=== PATIENT | female | born 1950 | race Caucasian/White ===

== ENCOUNTER → 2017-01-16 | Outpatient (CLI) | payer MEDICARE, OTHER ==
[~2017-01-16] MED LIST: AMIO200T44 PO; AMLO5TAB66 PO; BENA40TA67 PO; CARV12 PO; DOCU250C91 PO; FURO40 PO; METF500T4 PO; METH10TA4 PO; OMEG1CAP11 PO; PANT40TA25 PO; POTA8TAB4 PO; RIVA20TA PO; SITA100 PO
== END | disposition home or self-care (01) ==
LOC: RADPV 10:50
PROVIDERS: ATTEND Orthopaedic Surgery
DX: M17.12 Unilateral primary osteoarthritis, left knee (principal); M16.12 Unilateral primary osteoarthritis, left hip; M25.852 Other specified joint disorders, left hip; M46.07 Spinal enthesopathy, lumbosacral region
CPT/HCPCS: 72170

== ENCOUNTER → 2017-05-15 | Outpatient (CLI) | payer MEDICARE, OTHER | END | disposition home or self-care (01) | LOC: RADPV 08:22 | PROVIDERS: ATTEND Internal Medicine Cardiovascular Disease | DX: I70.213 Atherosclerosis of native arteries of extremities with intermittent claudication, bilateral legs (principal) | CPT/HCPCS: 93880; 93925 ==

== ENCOUNTER → 2017-06-14 | Outpatient (CLI) | payer MEDICARE, OTHER | END | disposition home or self-care (01) | LOC: RADPV 11:13 | PROVIDERS: ATTEND Orthopaedic Surgery | DX: I82.4Z1 Acute embolism and thrombosis of unspecified deep veins of right distal lower extremity (principal) | CPT/HCPCS: 93971 ==

== ENCOUNTER 2018-12-02 01:09 | Emergency (ER) | payer MEDICARE, OTHER ==
[~2018-12-02] VITALS: Ht 167.6 cm; Wt 86.4 kg
[~2018-12-02 01:09] MED LIST changes: +METF-444 PO; -METF500T4 PO
[2018-12-02] MEDS ORDERED: GLUC100019 PO (01:21)
[2018-12-02] MEDS ORDERED: CHL25 PO (01:21)
[2018-12-02] MEDS ORDERED: ASPI-556 PO (01:21)
[2018-12-02] MEDS ORDERED: CARV25 PO (01:21)
[2018-12-02] MEDS ORDERED: CLOP75TA3 PO (01:21)
[2018-12-02 01:29] LABS: GLUCOSE,POINT OF CARE 256 MG/DL (70-110)
[2018-12-02] MEDS ORDERED: ACETAMINOPHEN 325 MG TABLET PO ONE (03:30)
[2018-12-02 03:36] VITALS: BP 123/55
== END 2018-12-02 04:00 | disposition home or self-care (01) ==
LOC: EMS 01:09
DX: S83.91XA Sprain of unspecified site of right knee, initial encounter (principal); I11.0 Hypertensive heart disease with heart failure; I50.9 Heart failure, unspecified; K21.9 Gastro-esophageal reflux disease without esophagitis; I48.91 Unspecified atrial fibrillation; Z90.710 Acquired absence of both cervix and uterus; Z90.49 Acquired absence of other specified parts of digestive tract; Z79.82 Long term (current) use of aspirin; Z79.899 Other long term (current) drug therapy; Z79.84 Long term (current) use of oral hypoglycemic drugs; X58.XXXA Exposure to other specified factors, initial encounter; Y93.01 Activity, walking, marching and hiking; Y92.89 Other specified places as the place of occurrence of the external cause; Y99.8 Other external cause status

== ENCOUNTER → 2019-01-23 | Outpatient (CLI) | payer MEDICARE, OTHER ==
[~2019-01-23] MED LIST changes: +ASPI-556 PO; -CARV12 PO; +CARV25 PO; +CHL25 PO; +CLOP75TA3 PO; +GLUC100019 PO; -PANT40TA25 PO; -RIVA20TA PO; -SITA100 PO
== END | disposition home or self-care (01) ==
LOC: RADPV 08:28
PROVIDERS: ATTEND Internal Medicine Nephrology
DX: I65.23 Occlusion and stenosis of bilateral carotid arteries (principal)
CPT/HCPCS: 93880

== ENCOUNTER 2021-08-03 12:20 | Inpatient (IN) | payer MEDICARE, OTHER ==
[~2021-08-03] VITALS: Ht 170.2 cm; Wt 103.7 kg
[~2021-08-03 12:20] MED LIST changes: -AMIO200T44 PO; +AMIO200T68 PO; -CLOP75TA3 PO; +CLOP75TA60 PO; +DOCU-350 PO; -DOCU250C91 PO; +METH-624 PO; -METH10TA4 PO; -POTA8TAB4 PO; +SLOWK8 PO
[2021-08-03] MEDS ORDERED: SODIUM CHLORIDE 0.9% 1,000 ML IV ONE (13:00)
[2021-08-03] MEDS ORDERED: ACETAMINOPHEN 500 MG TABLET PO ONE (13:00)
[2021-08-03] MEDS ORDERED: 0.9% SODIUM CHLORIDE 10 ML SYRINGE IVP PRN ×2 (13:00→16:00)
[2021-08-03] MEDS ORDERED: KETOROLAC TROMETHAMINE 30 MG/ML VIAL IVP ONE (13:00)
[2021-08-03 13:10] LABS: BASOPHILS % (AUTO) 0.1 % (0.0-2.0); EOSINOPHILS % (AUTO) 0 % (1.0-6.0); HEMATOCRIT 43.9 % (36-46); HEMOGLOBIN 14.8 g/dL (12.0-16.0); LYMPHOCYTES # (AUTO) 0.3 K/uL (1.0-4.8); LYMPHOCYTES % (AUTO) 3.1 % (22.0-44.0); MEAN CORPUSCULAR HGB CONC 33.6 G/dL (31.0-37.0); MEAN CORPUSCULAR VOLUME 92 fL (80-100); MONOCYTES # (AUTO) 0.9 K/uL (0.1-1.0); MONOCYTES % (AUTO) 9.6 % (2.0-9.0); NEUTROPHILS # (AUTO) 8.6 K/uL (1.8-7.7); PLATELET COUNT (AUTO) 153 K/uL (150-450); RED BLOOD CELL COUNT(AUTO) 4.76 MIL/uL (4.00-5.20); RED CELL DISTRIBUTION WIDTH 15.2 % (11.5-14.5)
[2021-08-03 13:11] LABS: NEUTROPHILS % (AUTO) 87.2 % (40.0-70.0)
[2021-08-03] MEDS ORDERED: IOHEXOL 350 MG/ML 150 ML VIAL ONE (13:11)
[2021-08-03] MEDS ORDERED: SODIUM CHLORIDE 0.9% 100 ML ONE (13:11)
[2021-08-03 13:25] LABS: ANION GAP 19 mmol/L (8-16); CALCIUM, TOTAL 9.8 mg/dL (8.8-10.5); CARBON DIOXIDE 19 mmol/L (22-29); CHLORIDE 92 mmol/L (98-107); CREATININE 1.61 mg/dL (0.60-1.30); GLOMERULAR FILTR. RATE CALC 32 mL/min (>60); GLUCOSE,RANDOM 385 mg/dL (70-110); POTASSIUM 3.9 mmol/L (3.5-5.1); SODIUM SERUM 130 mmol/L (136-145); UREA NITROGEN, BLOOD 50 mg/dL (7-18)
[2021-08-03 13:27] LABS: APPEARANCE,URINE SL CLOUDY (CLEAR); BILIRUBIN,URINE NEGATIVE (NEGATIVE); GLUCOSE, URINE (UA) >=1000 mg/dL (NEGATIVE); KETONES,URINE 15 mg/dL (NEGATIVE); LEUKOCYTE ESTERASE ,URINE SMALL (NEGATIVE); NITRATE,URINE NEGATIVE (NEGATIVE); OCCULT BLOOD,URINE LARGE (NEGATIVE); PROTEIN,URINE POS 1+ (NEGATIVE); UROBILINOGEN,URINE 0.2 mg/dL (<=1.0)
[2021-08-03 13:28] LABS: INR 1.4 (0.9-1.1); PROTHROMBIN TIME 14.1 SEC (9.4-11.6)
[2021-08-03 13:35] LABS: LACTIC ACID 1.7 mmol/L (0.4-2.0)
[2021-08-03 13:39] LABS: BACTERIA,URINE Moderate /HPF (None Seen); TRANSITIONAL EPI CELLS,URINE Few /LPF (None Seen); YEAST,URINE Few /HPF (None Seen)
[2021-08-03 13:44] LABS: B-TYPE NATRIURETIC PEPTIDE 164 pg/mL (0-100)
[2021-08-03] MEDS ORDERED: INSULIN REGULAR, HUMAN 100 UNITS/ML IVP ONE (13:45)
[2021-08-03] MEDS ORDERED: CefTRIAXone 1 GM/DEXTROSE 50 ML IV ONE (13:45)
[2021-08-03] MEDS ORDERED: POTASSIUM CHLORIDE 20 MEQ ER TABLET PO ONE (13:45)
[2021-08-03 13:48] LABS: COVID AG,FIA SOURCE NASAL SWAB
[2021-08-03 13:50] LABS: ALANINE AMINOTRANSFERASE 24 U/L (12-78); ALBUMIN 2.7 g/dL (3.4-5.0); ALKALINE PHOSPHATASE 71 U/L (46-116); ASPARTATE AMINOTRANSFERASE 32 U/L (15-37); BILIRUBIN,TOTAL 0.8 mg/dL (0.1-1.0); CREATINE KINASE, TOTAL ONLY 361 U/L (26-192); TOTAL PROTEIN, SERUM 7.3 g/dL (6.4-8.2)
[2021-08-03 14:35] LABS: INFLUENZA TYPE A NEGATIVE FOR TYPE A (NEGATIVE); INFLUENZA TYPE B NEGATIVE FOR TYPE B (NEGATIVE)
[2021-08-03] MEDS ORDERED: DEXTROSE 50%-WATER 25 GM/50 ML SYRINGE IVP PRN (15:00)
[2021-08-03 15:10] LABS: CREATININE 1.7 mg/dL (0.60-1.30); POTASSIUM 3.2 mmol/L (3.5-5.1)
[2021-08-03] MEDS: POTASSIUM CHL 10 MEQ/WATER 50 ML IV SCH ×3 (15:46→17:52)
[2021-08-03] MEDS ORDERED: ONDANSETRON HCL 4 MG/2 ML VIAL IVP PRN ×2 (16:00→21:45)
[2021-08-03] MEDS ORDERED: ACETAMINOPHEN 325 MG TABLET PO PRN (16:00)
[2021-08-03] MEDS: NOREPINEPHRINE 4 MG/D5%-WATER 250 ML IV PRN (17:10)
[2021-08-03] MEDS ORDERED: *CLINICAL-LEVOFLOXACIN IVPB DOSING CLINICAL ONE (17:15)
[2021-08-03] MEDS ORDERED: LEVOFLOXACIN 750 MG/D5% WATER 150 ML IV ONE (17:30)
[2021-08-03] MEDS: SODIUM BICARBONATE IV SCH (21:00)
[2021-08-03] MEDS: POTASSIUM CHLORIDE IV SCH (21:00)
[2021-08-03] MEDS: SODIUM CHLORIDE 0.45% IV SCH (21:00)
[2021-08-03] MEDS ORDERED: MAGNESIUM HYDROXIDE SUSPENSION 30 ML UDCUP PO PRN (21:45)
[2021-08-03] MEDS ORDERED: ZOLPIDEM TARTRATE 5 MG TABLET PO PRN (21:45)
[2021-08-03] MEDS ORDERED: BISACODYL 10 MG RECTAL RECTAL SUPPOSITORY PR PRN (21:45)
[2021-08-03] MEDS ORDERED: SODIUM CHLORIDE 0.9% 1,000 ML IV SCH (21:45)
[2021-08-03] MEDS ORDERED: INSULIN GLARGINE,HUM.REC.ANLOG 100 UNITS/ML SQ ONE (22:15)
[2021-08-03 23:17] VITALS: BP 113/66
[2021-08-03 23:25] LABS: CREATININE 1.82 mg/dL (0.60-1.30); POTASSIUM 5.1 mmol/L (3.5-5.1)
[2021-08-03 23:26] LABS: GLUCOSE,POINT OF CARE 369 MG/DL (70-110)
[2021-08-04] VITALS (13 sets, daily range): BP systolic 91–124; BP diastolic 60–80
[2021-08-04] MEDS: DOCUSATE SODIUM 250 MG CAPSULE PO SCH ×3 (00:32→22:25)
[2021-08-04] MEDS: NOREPINEPHRINE 4 MG/D5%-WATER 250 ML IV PRN (02:28)
[2021-08-04 06:12] LABS: BASOPHILS % (AUTO) 0.3 % (0.0-2.0); EOSINOPHILS % (AUTO) 0.1 % (1.0-6.0); HEMATOCRIT 38.4 % (36-46); HEMOGLOBIN 13.3 g/dL (12.0-16.0); LYMPHOCYTES # (AUTO) 1.2 K/uL (1.0-4.8); LYMPHOCYTES % (AUTO) 8.8 % (22.0-44.0); MEAN CORPUSCULAR HEMOGLOBIN 31.5 pg (26.0-34.0); MEAN CORPUSCULAR HGB CONC 34.6 G/dL (31.0-37.0); MEAN CORPUSCULAR VOLUME 91 fL (80-100); MONOCYTES # (AUTO) 2.1 K/uL (0.1-1.0); MONOCYTES % (AUTO) 15.6 % (2.0-9.0); NEUTROPHILS # (AUTO) 10.3 K/uL (1.8-7.7); NEUTROPHILS % (AUTO) 75.2 % (40.0-70.0); PLATELET COUNT (AUTO) 163 K/uL (150-450); RED BLOOD CELL COUNT(AUTO) 4.23 MIL/uL (4.00-5.20); RED CELL DISTRIBUTION WIDTH 15.5 % (11.5-14.5)
[2021-08-04 06:26] LABS: GLUCOSE,POINT OF CARE 261 MG/DL (70-110)
[2021-08-04 06:44] LABS: ALBUMIN 2.4 g/dL (3.4-5.0); BILIRUBIN,TOTAL 0.5 mg/dL (0.1-1.0); CHOL/HDL RATIO 10.1 (3.9-5.7); CREATININE 1.54 mg/dL (0.60-1.30); FREE T4 (FREE THYROXINE) 2.06 ng/dL (0.76-1.46); MAGNESIUM 2.4 mg/dL (1.80-2.40); POTASSIUM 3.7 mmol/L (3.5-5.1); THYROID STIMULATING HORMONE 0.33 uIU/mL (0.36-3.74); TOTAL PROTEIN, SERUM 6.9 g/dL (6.4-8.2)
[2021-08-04 06:59] LABS: HEMOGLOBIN A1C 10.3 % (3.8-5.6)
[2021-08-04 07:15] LABS: LACTIC ACID 0.4 mmol/L (0.4-2.0)
[2021-08-04] MEDS: METHYLPHENIDATE HCL 10 MG TABLET PO SCH ×2 (08:06→21:00)
[2021-08-04] MEDS: RIVAROXABAN 15 MG TABLET PO SCH (08:06)
[2021-08-04] MEDS: PANTOPRAZOLE SODIUM 40 MG DR TABLET PO SCH (08:06)
[2021-08-04] MEDS: SODIUM BICARBONATE IV SCH (08:48)
[2021-08-04] MEDS: POTASSIUM CHLORIDE IV SCH (08:48)
[2021-08-04] MEDS: SODIUM CHLORIDE 0.45% IV SCH (08:48)
[2021-08-04] MEDS ORDERED: NOREPINEPHRINE 4 MG/D5%-WATER 250 ML IV PRN (10:30)
[2021-08-04] MEDS: INSULIN LISPRO 100 UNITS/ML SQ PRN ×2 (12:12→17:58)
[2021-08-04 12:16] LABS: GLUCOSE,POINT OF CARE 316 MG/DL (70-110)
[2021-08-04] MEDS ORDERED: ACETAMINOPHEN 650 MG/20.3 ML SOLUTION UDCUP PO PRN (13:15)
[2021-08-04] MEDS: ACETAMINOPHEN 325 MG TABLET PO PRN ×2 (13:23→18:03)
[2021-08-04] MEDS ORDERED: SODIUM CHLORIDE 0.9% 250 ML IV ONE (16:53)
[2021-08-04] MEDS: CefTRIAXone 1 GM/DEXTROSE 50 ML IV SCH (16:56)
[2021-08-04 18:16] LABS: GLUCOSE,POINT OF CARE 302 MG/DL (70-110)
[2021-08-04] MEDS ORDERED: INSULIN GLARGINE,HUM.REC.ANLOG 100 UNITS/ML SQ SCH (21:00)
[2021-08-04 22:16] LABS: GLUCOSE,POINT OF CARE 318 MG/DL (70-110)
[2021-08-05] VITALS (7 sets, daily range): BP systolic 113–139; BP diastolic 65–82
[2021-08-05] MEDS: POTASSIUM CHLORIDE IV SCH ×2 (01:05→14:20)
[2021-08-05] MEDS: SODIUM CHLORIDE 0.45% IV SCH ×2 (01:05→14:20)
[2021-08-05] MEDS: SODIUM BICARBONATE IV SCH ×2 (01:05→14:20)
[2021-08-05 06:07] LABS: BASOPHILS % (AUTO) 0.2 % (0.0-2.0); EOSINOPHILS % (AUTO) 0.1 % (1.0-6.0); HEMATOCRIT 36.7 % (36-46); HEMOGLOBIN 12.6 g/dL (12.0-16.0); LYMPHOCYTES # (AUTO) 1.4 K/uL (1.0-4.8); LYMPHOCYTES % (AUTO) 12.4 % (22.0-44.0); MEAN CORPUSCULAR HEMOGLOBIN 31.2 pg (26.0-34.0); MEAN CORPUSCULAR HGB CONC 34.4 G/dL (31.0-37.0); MEAN CORPUSCULAR VOLUME 91 fL (80-100); MONOCYTES # (AUTO) 1.4 K/uL (0.1-1.0); MONOCYTES % (AUTO) 12.3 % (2.0-9.0); NEUTROPHILS # (AUTO) 8.7 K/uL (1.8-7.7); PLATELET COUNT (AUTO) 161 K/uL (150-450); RED BLOOD CELL COUNT(AUTO) 4.05 MIL/uL (4.00-5.20)
[2021-08-05 06:20] LABS: C-REACTIVE PROTEIN QUANT 19.57 mg/dL (0.00-0.30); CALCIUM, TOTAL 8.7 mg/dL (8.8-10.5); CREATININE 1.25 mg/dL (0.60-1.30); POTASSIUM 3.6 mmol/L (3.5-5.1)
[2021-08-05] MEDS ORDERED: MIDAZOLAM HCL 2 MG/2 ML VIAL IVP ONE (06:35)
[2021-08-05] MEDS: ACETAMINOPHEN 325 MG TABLET PO PRN ×2 (06:43→16:25)
[2021-08-05] MEDS: INSULIN LISPRO 100 UNITS/ML SQ PRN ×3 (08:13→17:19)
[2021-08-05] MEDS: DOCUSATE SODIUM 250 MG CAPSULE PO SCH ×2 (08:14→21:22)
[2021-08-05] MEDS: PANTOPRAZOLE SODIUM 40 MG DR TABLET PO SCH (08:14)
[2021-08-05] MEDS: RIVAROXABAN 15 MG TABLET PO SCH (08:14)
[2021-08-05] MEDS: METHYLPHENIDATE HCL 10 MG TABLET PO SCH ×2 (08:14→21:00)
[2021-08-05] MEDS: AMIODARONE HCL 200 MG TABLET PO SCH ×2 (11:41→21:22)
[2021-08-05 11:56] LABS: GLUCOSE,POINT OF CARE 233 MG/DL (70-110)
[2021-08-05 11:57] LABS: GLUCOSE,POINT OF CARE 228 MG/DL (70-110)
[2021-08-05 11:57] LABS: GLUCOSE,POINT OF CARE 279 MG/DL (70-110)
[2021-08-05] MEDS: CefTRIAXone 1 GM/DEXTROSE 50 ML IV SCH (16:25)
[2021-08-05] MEDS ORDERED: LEVOFLOXACIN 750 MG/D5% WATER 150 ML IV SCH (18:00)
[2021-08-05] MEDS ORDERED: INSULIN GLARGINE,HUM.REC.ANLOG 100 UNITS/ML SQ SCH (21:00)
[2021-08-05] MEDS: HYDROCODONE/ACETAMINOPHEN 5-325 MG TABLET PO PRN (21:23)
[2021-08-05 21:41] LABS: GLUCOMETER DEV NAME(LOC) 5N.3; GLUCOSE,POINT OF CARE 239 MG/DL (70-110)
[2021-08-05 22:12] LABS: HEMOGLOBIN A1C 10.5 % (3.8-5.6)
[2021-08-05 22:19] LABS: ALBUMIN 2.3 g/dL (3.4-5.0); BILIRUBIN,TOTAL 0.2 mg/dL (0.1-1.0); CALCIUM, TOTAL 8.3 mg/dL (8.8-10.5); CREATININE 0.97 mg/dL (0.60-1.30); POTASSIUM 3.6 mmol/L (3.5-5.1); TOTAL PROTEIN, SERUM 6.5 g/dL (6.4-8.2)
[2021-08-05 23:41] LABS: GLUCOMETER DEV NAME(LOC) 5N.1C; GLUCOSE,POINT OF CARE 317 MG/DL (70-110)
[2021-08-06] MEDS: SODIUM BICARBONATE IV SCH (03:39)
[2021-08-06] MEDS: SODIUM CHLORIDE 0.45% IV SCH (03:39)
[2021-08-06] MEDS: POTASSIUM CHLORIDE IV SCH (03:39)
[2021-08-06] MEDS: HYDROCODONE/ACETAMINOPHEN 5-325 MG TABLET PO PRN ×2 (03:44→15:15)
[2021-08-06 05:15] VITALS: BP 113/72
[2021-08-06] MEDS: INSULIN LISPRO 100 UNITS/ML SQ PRN ×3 (06:20→18:04)
[2021-08-06 07:30] LABS: BASOPHILS % (AUTO) 0.5 % (0.0-2.0); EOSINOPHILS % (AUTO) 0.3 % (1.0-6.0); HEMATOCRIT 36.8 % (36-46); HEMOGLOBIN 12.6 g/dL (12.0-16.0); LYMPHOCYTES # (AUTO) 1.4 K/uL (1.0-4.8); LYMPHOCYTES % (AUTO) 16.3 % (22.0-44.0); MEAN CORPUSCULAR HEMOGLOBIN 30.9 pg (26.0-34.0); MEAN CORPUSCULAR HGB CONC 34.1 G/dL (31.0-37.0); MEAN CORPUSCULAR VOLUME 91 fL (80-100); MONOCYTES # (AUTO) 1.1 K/uL (0.1-1.0); MONOCYTES % (AUTO) 12.6 % (2.0-9.0); NEUTROPHILS # (AUTO) 5.9 K/uL (1.8-7.7); NEUTROPHILS % (AUTO) 70.3 % (40.0-70.0); PLATELET COUNT (AUTO) 167 K/uL (150-450); RED BLOOD CELL COUNT(AUTO) 4.06 MIL/uL (4.00-5.20); RED CELL DISTRIBUTION WIDTH 15.2 % (11.5-14.5)
[2021-08-06 07:51] LABS: CREATININE 0.94 mg/dL (0.60-1.30); PHOSPHORUS 2.1 mg/dL (2.5-4.9); POTASSIUM 3.6 mmol/L (3.5-5.1)
[2021-08-06 08:02] VITALS: BP 106/63
[2021-08-06] MEDS: METHYLPHENIDATE HCL 10 MG TABLET PO SCH ×2 (08:23→21:00)
[2021-08-06] MEDS: AMIODARONE HCL 200 MG TABLET PO SCH ×2 (08:23→21:34)
[2021-08-06] MEDS: PANTOPRAZOLE SODIUM 40 MG DR TABLET PO SCH (08:23)
[2021-08-06] MEDS: RIVAROXABAN 15 MG TABLET PO SCH (08:24)
[2021-08-06] MEDS: DOCUSATE SODIUM 250 MG CAPSULE PO SCH ×2 (08:24→21:34)
[2021-08-06 11:34] VITALS: BP 99/67
[2021-08-06] MEDS: ALBUMIN HUMAN 25%-25GM/100ML 100 ML IV SCH ×2 (14:11→19:45)
[2021-08-06] MEDS ORDERED: SODIUM CHLORIDE 0.9% 250 ML IV ONE (15:10)
[2021-08-06 16:09] VITALS: BP 117/74
[2021-08-06] MEDS: CefTRIAXone 1 GM/DEXTROSE 50 ML IV SCH (16:14)
[2021-08-06 19:16] LABS: GLUCOMETER DEV NAME(LOC) 5S.2B; GLUCOSE,POINT OF CARE 229 MG/DL (70-110)
[2021-08-06 19:17] LABS: GLUCOMETER DEV NAME(LOC) 5S.2B; GLUCOSE,POINT OF CARE 200 MG/DL (70-110)
[2021-08-06 20:01] LABS: GLUCOMETER DEV NAME(LOC) 5N.1C; GLUCOSE,POINT OF CARE 220 MG/DL (70-110)
[2021-08-06] MEDS ORDERED: INSULIN GLARGINE,HUM.REC.ANLOG 100 UNITS/ML SQ SCH (21:00)
[2021-08-06] MEDS: INSULIN GLARGINE,HUM.REC.ANLOG 100 UNITS/ML SQ SCH (21:37)
[2021-08-06 23:16] VITALS: BP 134/75
[2021-08-07 00:52] LABS: GLUCOMETER DEV NAME(LOC) 5S.2B; GLUCOSE,POINT OF CARE 232 MG/DL (70-110)
[2021-08-07] MEDS: ALBUMIN HUMAN 25%-25GM/100ML 100 ML IV SCH ×4 (01:11→19:37)
[2021-08-07] MEDS: HYDROCODONE/ACETAMINOPHEN 5-325 MG TABLET PO PRN ×3 (01:11→16:15)
[2021-08-07 04:38] VITALS: BP 143/86
[2021-08-07] MEDS: INSULIN LISPRO 100 UNITS/ML SQ PRN ×4 (05:41→20:10)
[2021-08-07 07:01] LABS: GLUCOMETER DEV NAME(LOC) 5S.2B; GLUCOSE,POINT OF CARE 210 MG/DL (70-110)
[2021-08-07 07:07] VITALS: BP 150/90
[2021-08-07 07:56] LABS: ANION GAP 9 mmol/L (8-16); CALCIUM, TOTAL 8.4 mg/dL (8.8-10.5); CARBON DIOXIDE 29 mmol/L (22-29); CHLORIDE 99 mmol/L (98-107); CREATININE 0.87 mg/dL (0.60-1.30); GLUCOSE,RANDOM 203 mg/dL (70-110); PHOSPHORUS 1.8 mg/dL (2.5-4.9); POTASSIUM 3.7 mmol/L (3.5-5.1); SODIUM SERUM 137 mmol/L (136-145); UREA NITROGEN, BLOOD 16 mg/dL (7-18)
[2021-08-07 07:58] LABS: GLOMERULAR FILTR. RATE CALC > 60 mL/min (>60)
[2021-08-07] MEDS: DOCUSATE SODIUM 250 MG CAPSULE PO SCH ×2 (07:58→20:08)
[2021-08-07] MEDS: RIVAROXABAN 15 MG TABLET PO SCH (07:58)
[2021-08-07] MEDS: METHYLPHENIDATE HCL 10 MG TABLET PO SCH ×2 (07:58→20:08)
[2021-08-07] MEDS: AMIODARONE HCL 200 MG TABLET PO SCH ×2 (07:58→20:08)
[2021-08-07] MEDS: PANTOPRAZOLE SODIUM 40 MG DR TABLET PO SCH (08:16)
[2021-08-07 11:07] VITALS: BP 142/80
[2021-08-07] MEDS: SULFAMETHOX/TRIMETH DS 800-160 MG/TABLET PO SCH ×2 (12:16→20:08)
[2021-08-07] MEDS: SODIUM,POTASSIUM PHOSPHATES POWDER PACKET PO SCH ×2 (12:16→20:08)
[2021-08-07 12:41] LABS: GLUCOMETER DEV NAME(LOC) 5S.1; GLUCOSE,POINT OF CARE 281 MG/DL (70-110)
[2021-08-07] MEDS ORDERED: DIGOXIN 250 MCG/ML 2 ML AMP IVP ONE (13:00)
[2021-08-07 15:41] VITALS: BP 134/73
[2021-08-07] MEDS: CefTRIAXone 1 GM/DEXTROSE 50 ML IV SCH (16:15)
[2021-08-07 16:31] LABS: GLUCOMETER DEV NAME(LOC) 5S.1; GLUCOSE,POINT OF CARE 270 MG/DL (70-110)
[2021-08-07 19:30] VITALS: BP 121/80
[2021-08-07] MEDS: INSULIN GLARGINE,HUM.REC.ANLOG 100 UNITS/ML SQ SCH (20:11)
[2021-08-07 22:06] LABS: GLUCOMETER DEV NAME(LOC) 5S.1; GLUCOSE,POINT OF CARE 276 MG/DL (70-110)
[2021-08-08 00:35] VITALS: BP 145/79
[2021-08-08] MEDS ORDERED: ALBUTEROL SULFATE 2.5 MG/0.5 ML NEB SOLUTION NEB PRN (00:45)
[2021-08-08] MEDS ORDERED: IPRATROPIUM BROMIDE 0.5 MG/2.5 ML NEB SOLUTION NEB PRN (00:45)
[2021-08-08] MEDS: ALBUMIN HUMAN 25%-25GM/100ML 100 ML IV SCH (01:06)
[2021-08-08 01:54] LABS: CREATININE,URINE RANDOM 24.5 mg/dL (30.0-125.0)
[2021-08-08] MEDS ORDERED: LORazepam 0.5 MG TABLET PO PRN (02:15)
[2021-08-08 05:39] LABS: ABG BASE EXCESS -21.9 mmol/L (-2.0-3.0); ABG CARBOXYHEMOGLOBIN 1.1 % (0.0-1.5); ABG METHEMOGLOBIN 0.3 % (0.0-1.5); ABG OXYGEN CONTENT 11.7 mL/dL (15.0-23.0); ABG OXYHEMOGLOBIN 53.1 % (94.0-100.0); ABG TOTAL HEMOGLOBIN 15.7 G/dL (12.0-18.0); SOURCE, BLOOD GAS ARTERIAL; TEMPERATURE, FAHRENHEIT, BG 98.6 FAHREN (96.0-98.6)
[2021-08-08 05:40] LABS: ABG HCO3 7.8 mmol/L (22.0-26.0); ABG OXYGEN SATURATION 53.9 % (95.0-98.0); ABG PCO2 83 mmHg (35-45); ABG PH 6.802 (7.35-7.450); O2 DEVICE,BLOOD GAS VENTILATOR (ROOM AIR); PEEP,BG 5 cm H2O; SITE, BLOOD GAS LFT RADIAL; VENT MODE, BG Press. Control Vent (ROOM AIR); VT, ABG 298 ml
[2021-08-08] MEDS ORDERED: SODIUM CHLORIDE 0.9% 1,000 ML IV ONE ×2 (05:45→06:00)
[2021-08-08 05:56] LABS: GLUCOMETER DEV NAME(LOC) 5S.1; GLUCOSE,POINT OF CARE 405 MG/DL (70-110)
[2021-08-08 05:56] LABS: GLUCOMETER DEV NAME(LOC) 5S.1; GLUCOSE,POINT OF CARE 266 MG/DL (70-110)
[2021-08-08] MEDS ORDERED: AMIODARONE HCL 150 MG in DEXTROSE 5%-WATER 97 ML IV ONE (06:00)
[2021-08-08] MEDS ORDERED: AMIODARONE HCL 360 MG in DEXTROSE 5%-WATER 242.8 ML IV ONE (06:00)
[2021-08-08] MEDS ORDERED: NOREPINEPHRINE 4 MG/D5%-WATER 250 ML IV ONE (06:04)
[2021-08-08] MEDS ORDERED: DOPamine 400MG/D5W[STANDARD] 250 ML IV PRN (06:15)
[2021-08-08] MEDS ORDERED: NOREPINEPHRINE 4 MG/D5%-WATER 250 ML IV PRN (06:15)
[2021-08-08] MEDS ORDERED: ATROPINE SULFATE 0.1 MG/ML 10 ML SYRINGE IVP ONE ×2 (08:24)
[2021-08-08] MEDS ORDERED: 0.9% SODIUM CHLORIDE 10 ML SYRINGE IVP ONE ×2 (08:24)
[2021-08-08] MEDS ORDERED: DOPamine HCL/D5W 400 MG/250 ML IV BAG IV ONE (08:24)
[2021-08-08] MEDS ORDERED: CALCIUM CHLORIDE 100 MG/ML 10 ML SYRINGE IVP ONE (08:24)
[2021-08-08] MEDS ORDERED: SODIUM BICARBONATE [ADULT] 8.4% 50 MEQ/50 ML SYRINGE IVP ONE (08:24)
[2021-08-08] MEDS ORDERED: EPINEPHrine 1:10,000 [1 MG/10 ML] SYRINGE IVP ONE ×2 (08:24)
[2021-08-08] MEDS ORDERED: 0.9% SODIUM CHLORIDE 1,000 ML BAG IV ONE (08:24)
[2021-08-08] MEDS ORDERED: INSULIN GLARGINE,HUM.REC.ANLOG 100 UNITS/ML SQ SCH (09:00)
[2021-08-08] MEDS ORDERED: AMIODARONE HCL 540 MG in DEXTROSE 5%-WATER 239.2 ML IV ONE (12:00)
[2021-08-09] MEDS ORDERED: AMIODARONE HCL 750 MG in DEXTROSE 5%-WATER 485 ML IV SCH (06:00)
[2021-08-10 15:07] LABS: ALBUMIN URINE (ELP) 64.4 %
== END 2021-08-08 08:25 | DRG 871 ==
LOC: EMS 12:20 → ICU 20:00 → 5S 08-05 14:40 → ICU 08-08 04:40
PROVIDERS: ADMIT Internal Medicine Geriatric Medicine; ATTEND Internal Medicine Geriatric Medicine
PROC: 5A1935Z Respiratory Ventilation, Less than 24 Consecutive Hours (ICD-10-PCS; principal; 2021-08-08)
PROC: 0BH17EZ Insertion of Endotracheal Airway into Trachea, Via Natural or Artificial Opening (ICD-10-PCS; 2021-08-08)
PROC: 5A0935A Assistance with Respiratory Ventilation, Less than 24 Consecutive Hours, High Flow/Velocity Cannula (ICD-10-PCS; 2021-08-08)
DX: A41.50 Gram-negative sepsis, unspecified (principal); R65.21 Severe sepsis with septic shock; I21.A1 Myocardial infarction type 2; N17.9 Acute kidney failure, unspecified; I13.0 Hypertensive heart and chronic kidney disease with heart failure and stage 1 through stage 4 chronic kidney disease, or unspecified chronic kidney disease; E87.1 Hypo-osmolality and hyponatremia; N13.6 Pyonephrosis; I48.20 Chronic atrial fibrillation, unspecified; I48.92 Unspecified atrial flutter; E11.22 Type 2 diabetes mellitus with diabetic chronic kidney disease; E11.65 Type 2 diabetes mellitus with hyperglycemia; E87.6 Hypokalemia; E78.5 Hyperlipidemia, unspecified; I50.9 Heart failure, unspecified; I48.91 Unspecified atrial fibrillation; E83.39 Other disorders of phosphorus metabolism; F98.8 Other specified behavioral and emotional disorders with onset usually occurring in childhood and adolescence; J44.9 Chronic obstructive pulmonary disease, unspecified; E11.21 Type 2 diabetes mellitus with diabetic nephropathy; I46.8 Cardiac arrest due to other underlying condition; R31.0 Gross hematuria; K21.9 Gastro-esophageal reflux disease without esophagitis; Z20.822 Contact with and (suspected) exposure to COVID-19; N18.30 Chronic kidney disease, stage 3 unspecified; E11.51 Type 2 diabetes mellitus with diabetic peripheral angiopathy without gangrene; K59.00 Constipation, unspecified; R62.7 Adult failure to thrive; E66.9 Obesity, unspecified; D64.9 Anemia, unspecified; B96.20 Unspecified Escherichia coli [E. coli] as the cause of diseases classified elsewhere; Z90.49 Acquired absence of other specified parts of digestive tract; Z90.710 Acquired absence of both cervix and uterus; Z79.899 Other long term (current) drug therapy; Z68.35 Body mass index [BMI] 35.0-35.9, adult; Z82.3 Family history of stroke; Z82.49 Family history of ischemic heart disease and other diseases of the circulatory system; Z83.3 Family history of diabetes mellitus; Z87.442 Personal history of urinary calculi; Z87.891 Personal history of nicotine dependence
CPT/HCPCS: 36600; 71045; 74018; 74177; 76770; 80048; 80053; 80061; 81001; 82009; 82550; 82570; 82805; 82948; 82962; 83036; 83605; 83690; 83735; 83880; 84100; 84132; 84145; 84156; 84166; 84300; 84439; 84443; 84484; 85025; 85610; 86140; 87040; 87077; 87081; 87086; 87205; 87804; 92950; 93005; 93306; 94002; 94640; 97161; 99291; G0378; J0171; J0282; J0461; J0696; J1160; J1265; J1815; J1885; J1956; J2250; J3480; J3490; J7030; J7050; J7060; P9046; Q9967; 36415-L1; 36415-TC; J7613